=== PATIENT | male | born 1975 | race Caucasian/White ===

== ENCOUNTER 2019-11-16 05:25 | Emergency (ER) | payer BC, OTHER ==
--- NOTE | 2019-11-16 06:00 | ERPHSYRPT ---
- History of Present Illness Time Seen by Provider: 11/16/19 05:45 Source: patient Exam Limitations: no limitations Patient Subjective Stated Complaint: Patient states " I have had a sore throat last 3 days and it keeps getting worse and it is getting hard to swallow and talk". Triage Nursing Assessment: Patient arrived to ER via friend. Patient A/O times 4. Patient answers questions appropriatley. Patient throat red in color with small white blister noted on right side behind tonsil. Tonsils noted to be swollen and red. Right ear membrane red in color. Patient denies any drainage from ear. Left ear membrane WNL. Patient's lymph node on right swollen upon palpitation. Lymph node on left WNL. Patient denies eye drainage or discomfort. Patient denies nasal drainage. Patient denies SOB. No S/S of respiratory distress noted. Physician History: 44-year-old white male presents to the emergency department with a 3-day history of worsening right-sided sore throat. He has not had a fever or cough. Patient is allergic to penicillin and has had Keflex in the past without any issues. Patient does not have chest pain or shortness of breath. Patient states he has not been around anybody with similar complaints. Timing/Duration: gradual onset, days (3) Severity: moderate ENT Location: throat Prearrival Treatment: no prearrival treatment Modifying Factors: Improves With: activity Associated Symptoms: ear pain (R), swollen glands (Right upper cervical), sore throat Allergies/Adverse Reactions: Penicillins Allergy (Mild, Verified 11/16/19 05:55) Hx Tetanus, Diphtheria Vaccination/Date Given: Yes Hx Influenza Vaccination/Date Given: Yes Hx Pneumococcal Vaccination/Date Given: No Immunizations Up to Date: Yes Travel Risk - International Travel Have you traveled outside of the country in past 3 weeks: No Have you or anyone close to you been diagnosed with or: No Do your reside in a community with a known COVID-19 case?: Yes If Yes where:: [facility] - Coronavirus Screening Has patient experienced Coronavirus symptoms: No - Review of Systems Constitutional: No Symptoms Eyes: No Symptoms Ears, Nose, & Throat: Ear Pain (Right), Throat Pain Respiratory: No Symptoms Cardiac: No Symptoms Abdominal/Gastrointestinal: No Symptoms Genitourinary Symptoms: No Symptoms Musculoskeletal: No Symptoms Skin: No Symptoms Neurological: No Symptoms Psychological: No Symptoms Endocrine: No Symptoms Hematologic/Lymphatic: No Symptoms Immunological/Allergic: No Symptoms All Other Systems: Reviewed and Negative - Past Medical History Pertinent Past Medical History: Yes Neurological History: No Pertinent History ENT History: No Pertinent History Cardiac History: No Pertinent History Respiratory History: Pneumonia Endocrine Medical History: No Pertinent History Musculoskeletal History: No Pertinent History GI Medical History: No Pertinent History History: No Pertinent History Psycho-Social History: No Pertinent History Male Reproductive Disorders: No Pertinent History Other Medical History: ULCER AT AGE OF 14 - Past Surgical History Past Surgical History: Yes Neuro Surgical History: No Pertinent History Cardiac: No Pertinent History Respiratory: No Pertinent History Gastrointestinal: Appendectomy Genitourinary: No Pertinent History Musculoskeletal: No Pertinent History Male Surgical History: No Pertinent History - Social History Smoking Status: Current every day smoker How long have you smoked: 15 years Exposure to second hand smoke: Yes Drug Use: none Patient Lives Alone: No - Nursing Vital Signs Nursing Vital Signs: Initial Vital Signs Temperature 97.4 F 11/16/19 05:33 Pulse Rate 107 H 11/16/19 05:33 Respiratory Rate 18 11/16/19 05:33 Blood Pressure 149/89 11/16/19 05:33 O2 Sat by Pulse Oximetry 99 11/16/19 05:33 Pain Scale Pain Intensity 6 - Physical Exam General Appearance: no apparent distress, alert Eye Exam: bilateral eye: normal inspection, PERRL, EOMI Ear Exam: bilateral ear: auricle normal, canal normal, TM normal Nasal Exam: normal inspection Throat Exam: pharynx swelling, tonsillar exudate, tonsillar swelling (Right side ) Neck Exam: normal inspection, non-tender, supple, full range of motion, trachea midline, lymphadenopathy (R) (Upper cervical chain) Cardiovascular/Respiratory Exam: chest non-tender Abdominal Exam: non-tender Neurologic Exam: alert, oriented x 3, cooperative, color specialist II-XII nml as tested, normal mood/affect, nml cerebellar function, nml station & gait Skin Exam: normal color, warm, dry SpO2 Interpretation: normal SpO2: 99 O2 Delivery: Room Air - Course Nursing assessment & vital signs reviewed: Yes Ordered Tests: Active Orders 24 hr Category Date Time Status Isolation, Initiate & Maintain Q4H Care 11/16/19 05:45 Active - Departure Departure Disposition: Home Clinical Impression: Pharyngitis, Tonsillitis Condition: Stable Critical Care Time: No Referrals: DOCTOR,NO FAMILY [Primary Care Provider] - Additional Instructions: Drink plenty of fluids. Take medication as prescribed. Follow-up with your primary care physician for persistent symptoms Prescriptions: Azithromycin 250 mg [Zithromax 250 MG TABLET] 250 mg PO ZPACK #6 tablet Hydrocodone Bit/Acetaminophen [Hydrocodone-Acetaminophen Soln] 10 ml PO Q6H # 120 ml Prednisone 10 mg [Deltasone 10 mg] 10 mg PO TID #12 tablet
[2019-11-16 06:26] VITALS: O2SAT 99
[2019-11-16 07:01] VITALS: BP 136/92; PULSE 109
[2019-11-16 07:13] LABS: INFLUENZA A NEGATIVE (NEGATIVE); INFLUENZA B NEGATIVE (NEGATIVE); RESPIRATORY SYNCTIAL VIRUS NEGATIVE (Negative)
== END 2019-11-16 07:19 | disposition home or self-care (01) ==
LOC: ED 05:25
DX: B00.2 Herpesviral gingivostomatitis and pharyngotonsillitis (principal); H92.01 Otalgia, right ear
CPT/HCPCS: 87631; 87651; 99283